=== PATIENT | male | born 1985 | race Caucasian/White ===

== ENCOUNTER 2024-06-13 09:59 | Emergency (ER) | payer BC, SELFPAY ==
[2024-06-13 10:02] VITALS: BP 124/81
[2024-06-13] MEDS: ZOFRAN 4 MG IV (10:04)
[2024-06-13] MEDS: DILAUDID 1 MG IV ×2 (10:06→10:32)
[2024-06-13 10:16] VITALS: BMI 22.0
--- NOTE | 2024-06-13 10:16 | ED.GENMED ---
History of Present Illness
General
Chief Complaint: Flank Pain
Source: patient
Exam Limitations: none
Time Seen by Provider: 06/13/24 10:03
Nursing documentation reviewed up to this point in time: agreed with
History of Present Illness
History of Present Illness:
pt is a 38 y/o M with no PMH
here with L sided back pain onset 8 am
got much worse
called 911
vomiting on scene
given toradol an dzofran by EMS
now dry heaving and hyperventilating
never had pain like this 06/20
wrapping around left abdomen
nothing makes it better/worse
no previous kidney stones.
Past History
Past History
ED Past Medical History: None
ED Past Surgical History: Orthopedic
Social History
Tobacco: Non-smoker
Alcohol: None
Drug: None
Personal:
Living: with family
Employment: Employed
Phy Exam
Physical Exam
Physical Exam:
GENERAL: Alert, uncomfortable, hyperventilating, dry heaving
Neck: supple
CARDIAC: Regular rate and rhythm .
LUNGS: Clear breath sounds bilaterally, no acute respiratory distress, no wheezes/rales/rhonchi
back: no cva tendenress; no pain with movement
ABDOMEN: Soft, normal bowel sounds, nondistended, no abdominal tenderness, no guarding, no rebound, neg galan's
NEUROLOGICAL: Alert and oriented, no focal neuro deficits
SKIN: Warm and dry, skin intact.
PSYCH: Normal and appropriate interaction.
Course
Orders/Labs/Results
Orders:
Orders
06/13/24 10:04
Ondansetron Injectable [Zofran] 4 mg IV NOW STA
06/13/24 10:05
0.9% Sodium Chloride 1000 ml [Nss] 1,000 ml IV BOLUS
HYDROmorphone [Dilaudid] 1 mg IV NOW STA
HYDROmorphone [Dilaudid] 1 mg IV NOW STA
06/13/24 10:06
CT Abd/pel Without Iv Or Oral Urgent
Comment:
Reason For Exam: L flank pain suspect kidney stone
06/13/24 10:10
Complete Blood Count/With Diff Urgent
Comprehensive Metabolic Panel Urgent
06/13/24 10:32
HYDROmorphone [Dilaudid] 1 mg IV NOW STA
06/13/24 11:16
Acetaminophen 1000MG/100Ml [Ofirmev] 1,000 mg in 100 ml IV ONCE
Acetaminophen IV Indication:: ED Narcotic History-ONCE
diazePAM [Valium Injection] 2 mg IV NOW STA
06/13/24 11:25
Tamsulosin [Flomax] 0.4 mg PO NOW STA
06/13/24 11:30
Acetaminophen [Tylenol] 1,000 mg PO NOW STA
06/13/24 12:36
Urinalysis Reflex To Culture Urgent
Date Specimen was Collected: 06/13/24
Time Specimen was Collected: 12:33
Urine Microscopic Reflex Cult Urgent
Abnormal Lab Results
06/13/24 06/13/24
10:10 12:36
Carbon Dioxide 19 L mmol/L
(22-30)
Glucose 140 H mg/dl
(70-99)
Calcium 10.4 H mg/dl
(8.4-10.2)
Total Bilirubin 1.5 H mg/dl
(0.2-1.3)
Albumin 5.3 H g/dl
(3.5-5.0)
Urine Ketones 1+ A
(Negative)
Ur Occult Blood Reflex 3+ A
(Negative)
Urine RBC 11-15 A /HPF
(0-2)
06/13/24 10:10
06/13/24 10:10
Vital Signs
Initial and Last Documented VS:
Initial Vital Signs
Pulse Resp Pulse Ox
92 31 100
06/13/24 10:01 06/13/24 10:01 06/13/24 10:01
Last Documented Vital Signs
Temp Pulse Resp BP Pulse Ox
98.1 F 64 16 132/79 100
06/13/24 10:23 06/13/24 11:45 06/13/24 11:45 06/13/24 11:00 06/13/24 11:45
MDM/Problems Addressed
Differential Diagnosis Includes:
renal colic, msk pain,
MDM/Problems Addressed:
38 y/o M
onset of L back pain today
had mild pain yesterday with some urinary frequency but then pain got much more intense at 8 am and was coming and going, radiating to L flank
nauesa/vomiting/dry heaving
very uncomfortable
via 911, received meds ien route but pt was hyperventilating an dvery uncomfortable
no abdominal or flank tendneress
suspected renal colic
given dilaudid, requiring x 2 doses and zofran x 2 total
labs show normal wbc, normal cr
ua pending
ct scan shows stone in his bladder 3 mm
mild residual hydro
pain should largely be improved
it has returned one other time and then resoled before meds;
pending ua will d/c home with flomax
strainer
tylenol/motrin
06/13/2024 1315 PM patient's pain controlled, UA shows blood but no signs of bacteria or infection. DC home
*Critical Care Note
Total Time (30-74mins, 75-104mins- exclusive of procedures): Not Applicable
ED Attending Note
-
Portions of this chart may have been created with voice recognition software.� Occasional wrong word or��sound alike� substitutions may have occurred due to the inherent limitations of voice recognition software.
Discharge Plan
Departure
Patient Disposition: Home (Routine Discharge)
Date of Disposition: 06/13/24
Time of Disposition: 13:02
Patient with high blood pressure during this ER visit?: No
Condition: Fair
Covid-19: Not Applicable
Discharge Problem:
Kidney stone
Instructions: Kidney Stones (DC), How to Strain Your Urine
Prescriptions:
New
ondansetron 4 mg tablet,disintegrating
4 mg PO Q8H PRN (Reason: nausea and vomiting) 2 Days Qty: 4 0RF
tamsulosin [Flomax] 0.4 mg capsule
0.4 mg PO DAILY Qty: 7 0RF
Referrals:
Domenic Ye MD [Active] - Follow up in 5-7 days (urology)
Activity Restrictions/Additional Instructions:
KEEP HYDRATED
TAKE FLOMAX 0.4 MG ONCE A DAY UNTIL YOU PASS THE STONE
URINATE THROUGH THE STRAINER EACH TIME YOU PEE
TAKE TYLENOL 2 EXTRA STRENGTH TABS 3 TIMES A DAY FOR PAIN
YOU CAN ALSO TRY MOTRIN 800 MG EVERY 8 HOURS WITH FOOD 2-3 TIMES A DAY NEEDED
zofran every 8 hours as needed for nausea/vomiting
RETURN FOR: SEVERE PAIN, VOMITING, FEVER, NOT URINATING OR ANY CONCERNS.
OTHERWISE FOLLOW UP WITH YOUR UROLOGIST
Interventions
Interventions:
*Risk Screen - Suicide Last Done: 06/13/24 10:36
*General Assessment Last Done: 06/13/24 10:23
*Neglect/Abuse Screening Last Done: 06/13/24 10:23
ED- Fall Risk Assessment Last Done: 06/13/24 13:06
*ED COVID-19 Vaccine History Last Done: 06/13/24 10:23
YS-Iltlat-Iokjgztplz Assessment Last Done: 06/13/24 10:21
ED-Male Genitourinary Assessment Last Done: 06/13/24 10:21
Discharge Date and Time
Print Language: [id number]
[2024-06-13 10:17] VITALS: BP 124/81
[2024-06-13 10:20] LABS: % Eosinophils 4.5 % (0-6); % Immature Granulocytes 0.4 % (0-0.5); % Lymphocytes 38.7 % (20.5-51.1); % Monocytes 7.6 % (1.7-9.3); % Neutrophils 47.8 % (42.2-75.2); Absolute Basophils 0.1 10^3/uL (0-0.2); Absolute Eosinophils 0.2 10^3/uL (0-0.7); Absolute Lymphocytes 1.9 10^3/uL (1.2-3.4); Absolute Monocytes 0.4 10^3/uL (0.1-0.6); Absolute Neutrophils 2.3 10^3/uL (1.4-6.5); Hematocrit 39.3 % (39.0-52.0); Mean Corp Hgb Conc. 35.6 g/dL (33.0-37.0); Mean Corpuscular Hgb 28.7 pg (27.0-31.0); Mean Corpuscular Volume 80.7 fL (80.0-94.0); Mean Platelet Volume 9.8 fL (7.4-10.4); Nucleated Red Blood Cells % 0 % (-); Platelet Count 239 10^3/uL (130-400); Red Blood Cell Count 4.87 10^6/uL (4.70-6.10); Red Cell Dist. Width 12.2 % (11.5-14.5); White Blood Cell Count 4.9 10^3/uL (4.8-10.8)
[2024-06-13] MEDS: NSS 1000 IV (10:35)
[2024-06-13 10:42] LABS: ALT (SGPT) 22 U/L (0-50); AST (SGOT) 28 U/L (17-59); Albumin 5.3 g/dl (3.5-5.0); Alkaline Phosphatase 47 U/L (38-126); Blood Urea Nitrogen 20 mg/dl (9-20); Calcium 10.4 mg/dl (8.4-10.2); Carbon Dioxide 19 mmol/L (22-30); Chloride 103 mmol/L (98-107); Estimated Creatinine Clearance > 125 ml/min; Glucose 140 mg/dl (70-99); Potassium 4.5 mmol/L (3.5-5.1); Sodium 141 mmol/L (135-145); Total Bilirubin 1.5 mg/dl (0.2-1.3); Total Protein 7.7 g/dl (6.3-8.2); eGFR > 60.00
[2024-06-13 11:00] VITALS: BP 132/79
[2024-06-13 12:00] VITALS: BP 118/75
[2024-06-13 12:47] LABS: Urine Albumin Trace (Neg - Trace); Urine Bilirubin Negative (Negative); Urine Character Clear (Clear); Urine Color Yellow; Urine Glucose Negative (Negative); Urine Ketone 1+ (Negative); Urine Leukocyte Negative (Negative); Urine Nitrite Negative (Negative); Urine Occult Blood 3+ (Negative); Urine Urobilinogen Negative (Neg - 1+)
[2024-06-13] MEDS: TYLENOL 1000 MG PO (12:51)
[2024-06-13] MEDS: FLOMAX 0.4 MG PO (12:51)
[2024-06-13 12:59] LABS: Urine Mucus Moderate
== END 2024-06-13 13:58 | disposition home or self-care (01) ==
LOC: EMR 09:59
PROVIDERS: Physician Assistant; EMERGENCY PHYSICIAN Emergency Medicine
DX: N20.0 Calculus of kidney (principal)
CPT/HCPCS: 99284; 96374; 96375; 96376; 96361; 74176; 80053; 81003; 81015; 85025